=== PATIENT | male | born 1985 | race Caucasian/White ===

== ENCOUNTER 2019-06-28 14:25 | Emergency (ER) | payer OTHER ==
[~2019-06-28] VITALS: Ht 160 cm; Wt 77.1 kg
[2019-06-28 14:37] VITALS: BP_SYST 154
[2019-06-28] MEDS ORDERED: BACITRACIN 1 GM OINT TP ONE (14:45)
[2019-06-28] MEDS ORDERED: LIDOCAINE 1% 10 MG/ML, 20 ML MDV INJ ONE (14:45)
--- NOTE | 2019-06-28 15:17 | NUR ---
Patient to ER bed 2 to gown for evaluation. Side rails up. Report given to Ki TURNER.
--- NOTE | 2019-06-28 15:20 | NUR ---
Patient is awake, alert, and oriented x4. is at bedside. Patient reports that his finger was cut by a machine to make kabobs. Patient presents with 1cm laceration to left index finger. Patient is complaining of shooting pain 8/10 at laceration that shoots up his left arm.
--- NOTE | 2019-06-28 15:21 | NUR ---
ER KELSEA Beth examining patient.
--- NOTE | 2019-06-28 15:45 | NUR ---
KELSEA Beth at bedside to perform procedure.
--- NOTE | 2019-06-28 16:13 | NUR ---
Patient given written and verbal discharge instructions and verbalizes understanding. ER MD discussed with patient the results and treatment provided. Patient in stable condition. ID arm band removed. Rx of bacitracin, motrin, keflex given. Patient educated on pain management and to follow up with PMD. Pain Scale 0/10. Opportunity for questions provided and answered. Medication side effect fact sheet provided.
[2019-06-28 16:14] VITALS: BP_SYST 138
== END 2019-06-28 16:14 | disposition home or self-care (01) ==
LOC: SED 14:25
DX: S61.211A Laceration without foreign body of left index finger without damage to nail, initial encounter (principal); S67.191A Crushing injury of left index finger, initial encounter; R03.0 Elevated blood-pressure reading, without diagnosis of hypertension; W23.0XXA Caught, crushed, jammed, or pinched between moving objects, initial encounter; Y93.89 Activity, other specified; Y92.89 Other specified places as the place of occurrence of the external cause; Y99.8 Other external cause status
CPT/HCPCS: 12001; 73140; 99283; J2001